=== PATIENT | female | born 1960 | race Two or more races ===

== ENCOUNTER 2024-07-20 22:09 | Emergency (ER) | payer MEDICAID, SELFPAY ==
[2024-07-20 23:01] VITALS: BP 107/69; PULSE 80; RESP 18; TEMP 37; O2SAT 96; BMI 26.5
--- NOTE | 2024-07-20 23:24 | XR_ITS ---
Examination: PA lateral chest 2 views Technique when upright AP lateral chest 2 views Examination type: July 20, 2024 11:29 PM INDICATIONS: Chest pain and coughing beginning today. FINDINGS: Small areas of pneumonia in the lung bases right middle lobe and lingular segment Normal heart size Mild vascular congestion Moderate osteopenia IMPRESSION: Early areas of pneumonia in both lung [place]
--- NOTE | 2024-07-20 23:25 | EDRME_ITS ---
Rapid Medical Screening Exam [facility] Arrival date/time: 07/20/24 22:09 64F with no significant PMH presents to ED with 10 days of cough and lung/chest pain. Chief Complaint: Flu Like Symptoms Vital signs: Vital Signs Temperature 98.6 F 07/20/24 23:01 Pulse Rate 80 07/20/24 23:01 Respiratory Rate 18 07/20/24 23:01 Blood Pressure 107/69 07/20/24 23:01 Pulse Oximetry (%) 96 07/20/24 23:01 Oxygen Delivery Method Room Air 07/20/24 23:01
[2024-07-21 00:17] VITALS: BP 178/70; PULSE 62; RESP 18; TEMP 36.5; O2SAT 97
[2024-07-21 00:17] LABS: Basophils % (Auto) 0 % (0-2.5); Eosinophils % (Auto) 0 % (0-10); Hematocrit 41.3 % (36.0-46.0); Hemoglobin 14.5 g/dL (12.0-16.0); Immature Granulocytes % (Auto) 1 % (0-0); Immature Granulocytes Auto 0.15 Thou/mm3 (0.00-0.00); Lymphocytes # (Auto) 2.7 Thou/mm3 (1.0-4.8); Lymphocytes % (Auto) 24 % (10-50); Mean Corpuscular HGB Conc 35.1 g/dl (31.0-37.0); Mean Corpuscular Hemoglobin 33.6 pg (25.0-35.0); Mean Corpuscular Volume 96 fL (80-100); Monocytes # (Auto) 0.4 Thou/mm3 (0.0-0.8); Monocytes % (Auto) 4 % (0-12); Neutrophils # (Auto) 7.9 Thou/mm3 (1.8-7.7); Neutrophils % (Auto) 71 % (37-80); Nucleated Red Blood Cell % 0 /100 WBC (0); Platelet Count 334 Thou/mm3 (140-440); RDW Standard Deviation 40.7 fL (36.4-46.3); Red Blood Count 4.32 Miln/mm3 (4.00-5.20); White Blood Count 11.2 Thou/mm3 (3.6-11.0)
--- NOTE | 2024-07-21 00:33 | EDNOTE_ITS ---
Upper Respiratory Inf. RME/HPI General Chief Complaint: Flu Like Symptoms Stated Complaint: COUGH, LUNGS HURT, HEADACHE Time Seen by Provider: 07/20/24 23:31 Arrival date/time: 07/20/24 22:09 RME / HPI RME / HPI Narrative: 07/20/24 22:09 64F with no significant PMH presents to ED with 10 days of cough and lung/chest pain. ------ Dr. Toribio?s Main ED Evaluation: 64yo female presents to the ED for a chief compl aint of cough x 10 days. Patient states she's developed constant back pain and bilateral upper abdominal pain. Patient notes my lungs hurt . Patient reports associated chills. She denies any fever, sore throat, N/V/D or any other associated symptoms. PSH includes hernia repair. No tobacco use. Of note, patient is on steroids. Related Data Allergies Allergy/AdvReac Type Severity Reaction Status Date / Time Penicillins Allergy Unknown Hives Verified 07/20/24 22:21 Review of Systems Review of Systems Systems Reviewed: All systems reviewed, normal except as documented Narrative Review of Systems: Gen: No fever, + chills, no weight loss EYES: No discharge, no visual changes, no pain HEENT: No ear pain, no congestion, no sore throat PULM: No shortness of breath, + cough, no congestion CV: No chest pain, no dyspnea on exertion, no palpitations GI: No nausea, no vomiting, no diarrhea, + pain, no constipation : No frequency, no urgency, no dysuria Musc/skel: No joint pain, + back pain Skin: No rash. Warm and dry. Psyc: No hallucinations, no depression Heme/Lymph: No easy bleeding or bruising tendencies Neuro: No weakness, no headache Past Medical History Social History SMOKING STATUS: Never smoker ED Exam Narrative Physical exam: GENERAL APPEARANCE: alert and oriented x 4, well-developed, well-nourished, no acute distress VITALS: All vitals were reviewed and the pulse ox is 99% on room air, which is normal according to my interpretation. HEENT: Normocephalic, atraumatic; pupils equal, round, reactive to light; EOMI; mucous membranes pink, moist; oropharynx clear NECK: Supple LUNGS: CTABL; no wheezes, no rales, no rhonchi HEART: Regular rate, regular rhythm; normal S1, S2; no murmurs ABDOMEN: non distended; normal BS; soft, no tenderness, no guarding, no rebound; no masses, no organomegaly, no hernia BACK: no CVA tenderness EXTREMITIES: atraumatic; no edema NEUROLOGIC: awake; alert and oriented x4; cranial nerves II-XII grossly intact; no focal sensory or motor deficits PSYCHIATRIC: appropriate mood and affect SKIN: warm, dry, normal color; no rashes Course Course Course Narrative: CXR is ordered for determining the etiology of cough. Quality Measures none Orders Category Date Time Status Bedside COVID-19 Antigen Test NOW Care 07/21/24 00:33 Active Bedside Influenza A&B Antigen Test NOW Care 07/20/24 22:47 Completed EKG (ED ONLY) *Do not use* NOW Care 07/20/24 22:47 Completed Miscellaneous Nursing Order NOW Care 07/21/24 00:33 Active EKG (ED Only) Stat Exams 07/20/24 22:47 Ordered XR chest 2V Stat Exams 07/20/24 23:24 Completed BNP [B-Type Natriuretic Peptide] Stat Lab 07/20/24 23:31 Completed CBC Stat Lab 07/20/24 23:31 Completed Comprehensive Metabolic Panel Stat Lab 07/20/24 23:31 Completed Troponin I Stat Lab 07/20/24 23:31 Completed Albuterol/Ipratr Rt Marsha [Duoneb Rt Marsha] Med 07/21/24 00:55 Discontinued 3 ml INH X1 ONE Vital Signs Vital signs: Vital Signs Temperature 98.6 F 07/20/24 23:01 Pulse Rate 80 07/20/24 23:01 Respiratory Rate 18 07/20/24 23:01 Blood Pressure 107/69 07/20/24 23:01 Pulse Oximetry (%) 96 07/20/24 23:01 Oxygen Delivery Method Room Air 07/20/24 23:01 Upper Respiratory Infection MDM Narrative MDM Narrative:: Scribe Attestation: 07/21/24 Aisha Godfrey am scribing for and in the presence of Dr. Toribio. Patient data External records reviewed:: [facility] previous records (Per chart review, patient has no previous ED visits or admissions to this facility.) Clinical information provided by:: patient Social determinants that could affect healthcare access:: none Patient has the following chronic illnesses:: none How is presenting disease/condition affected by chronic disease/condition?: no chronic disease Evaluation data The following diagnostics were reviewed and interpreted by me:: lab results, radiology exam(s) and EKG tracing(s) Lab and/or radiology exams considered but not ordered:: none Interpretation Summary: CBC is normal, CMP is normal, troponin is normal, BNP is normal, according to my interpretation. EKG done at 2314, NSR, rate of 60, normal axis, normal intervals, no ectopy, no acute ischemia, according to my interpretation. ----- [facility] Report Signed Patient: MAKI SEHEHAN. Record#: [id number] Birthdate: 1960 Age/Sex: 64 / F Location: [facility] Attending Dr: Ordering Physician: Lul Zhong PA-C Date of Service: 07/20/24 Procedure(s): XR chest 2V Accession Number(s): [id number] cc: Cecilio Driver MD; Lul Zhong PA-C~ Examination: PA lateral chest 2 views Technique when upright AP lateral chest 2 views Examination type: July 20, 2024 11:29 PM INDICATIONS: Chest pain and coughing beginning today. FINDINGS: Small areas of pneumonia in the lung bases right middle lobe and lingular segment Normal heart size Mild vascular congestion Moderate osteopenia IMPRESSION: Early areas of pneumonia in both lung [place] Dictated By: Cecilio Driver MD Signed By: <Electronically signed by Cecilio Driver MD in OV> 07/20/24 6206 Medications / Prescriptions Medications or Prescriptions considered but not ordered:: none Medication administrations:: Medication Administration History Discontinued Medications Albuterol/Ipratropium (Albuterol/Ipratropium (Duoneb) Rt Marsha 3 Ml Nebu) 3 ml INH X1 ONE Stop: 07/21/24 00:56 Last Admin: 07/21/24 01:09 Dose: 3 ml Documented By: LEANDRA see above Consultations Consultation(s) initiated? (list below): No Diagnosis Upper Respiratory Differential Diagnosis: upper respiratory infection, viral infection, bronchitis, influenza and other (pneumonia) Most likely diagnosis given after review of the tests above:: see below Admission Indicated Admission indicated?: not indicated Admission Request Was there a request for admission?: No Disposition Plan Disposition Plan: Discharge Discharge Attestation Discharge Attestation: The patient and all family members were given an opportunity to ask questions and understood the discharge instructions. Discharge instructions specifically effects, indications for sooner follow up or return to the emergency department, and the expected course of current diagnosis. Patient condition: Stable Discharge Plan Plan Patient Disposition: HOME (Self Care) Disposition Comment: Stable for discharge Patient condition on transfer: Stable Prescriptions/Referrals Referrals: [facility] [Outside] - In 1 week Problem List Clinical Impression: Upper respiratory infection, viral Patient/Caregiver Discharge Instructions Discharge Activity: activity as tolerated Education Materials: ED URI, Viral W/ Wheezing (Adult) Additional Instructions: Please return to the emergency department for any worsening or any further medical problems Otherwise you should follow-up with your primary care doctor within the next several days Print Language: Palestinian Stand Alone Forms: Francine Award Info., Patient Portal Info Letter
[2024-07-21 00:46] LABS: Alanine Aminotransferase 41 U/L (10-49); Albumin, Serum 4.5 gm/dL (3.4-4.8); Albumin/Globulin Ratio 1.6 (1.2-2.2); Alkaline Phosphatase 84 U/L (46-116); Anion Gap 6 (7-16); Aspartate Amino Transferase 31 U/L (0-34); BUN/Creatinine Ratio 22 Ratio (12-20); Bilirubin,Total 0.5 mg/dL (0.3-1.2); Blood Urea Nitrogen 13 mg/dL (9-23); Carbon Dioxide 29.2 mMol/L (20.0-31.0); Chloride 103 mMol/L (98-107); Creatinine (Component) 0.6 mg/dL (0.6-1.3); Estimated Creatinine Clearance 88.9 mL/min (>60); Globulin 2.9 gm/dL (2.3-3.5); Glucose 105 mg/dL (74-106); Osmolality,Calculated 275 (275-295); Potassium 4.1 mMol/L (3.4-5.1); Sodium 138 mMol/L (136-145); Total Protein 7.4 gm/dL (5.7-8.2); Troponin I < 0.002 ng/mL (0.0-0.045); eGFR > 60 See Note
[2024-07-21] MEDS: ALBUTEROL/IPRATROPIUM (Duoneb) RT SOL 3 ML NEBU INH (01:09)
[2024-07-21 01:13] VITALS: PULSE 72; RESP 20; O2SAT 99
[2024-07-21 01:14] LABS: B-Type Natriuretic Peptide < 20 pg/mL (0-100)
[2024-07-21 02:14] VITALS: BP 137/66; PULSE 78; RESP 189; TEMP 36.6; O2SAT 98
== END 2024-07-21 02:29 | disposition home or self-care (01) ==
LOC: SERX 07-21 02:19
PROVIDERS: Physician Assistant; Emergency Provider Emergency Medicine; PCP Family Medicine
DX: J06.9 Acute upper respiratory infection, unspecified (principal); J18.9 Pneumonia, unspecified organism
CPT/HCPCS: 36415; 71046; 80053; 83880; 84484; 85025; 87400; 87811; 93005; 94640; 99283; A9270

== ENCOUNTER → 2024-11-08 | Outpatient (CLI) | payer MEDICAID, SELFPAY ==
--- NOTE | 2024-11-08 09:00 | XR_ITS ---
Examination: Breast ultrasound, unilateral, right complete Date and time of exam: November 08, 2024 0904 hours INDICATIONS: Mammogram January 09, 2023 suspicious microcalcifications 12:00 position right breast, patient states right breast lump with pain 10 years Technique: Real-time avalos scale ultrasonographic imaging performed right breast including all 4 quadrants as well as nipple retroareolar and axillary region. Findings: Circumscribed 5 x 4 mm 3:00 cyst 6 x 4 mm 6:00 nodule circumscribed 5 x 6 mm Retroareolar cyst 6 x 7 mm IMPRESSION: BI-RADS Category 3: Probably benign findings One additional 6 month right breast sonogram follow-up is needed to document stability of solid nodules described above
== END | disposition home or self-care (01) ==
PROVIDERS: PCP Physician Assistant; Referring Provider Physician Assistant; Visit Provider Physician Assistant
DX: N63.15 Unspecified lump in the right breast, overlapping quadrants (principal)
CPT/HCPCS: 76641